=== PATIENT | male | born 1965 | race African-American/Black ===

== ENCOUNTER 2018-09-13 18:02 | Inpatient (IN) | payer MEDICARE, MEDICAID ==
[~2018-09-13] VITALS: Ht 175.3 cm; Wt 56.7 kg
[2018-09-14] VITALS (8 sets, daily range): BP systolic 130–146; BP diastolic 73–85
[2018-09-14 01:07] LABS: BASOPHILS % 0.9 % (0.0-2.0); EOSINOPHILS % 1.9 % (0.0-5.0); HEMATOCRIT. 24.3 % (42.0-52.0); HEMOGLOBIN. 7.9 g/dL (14.0-18.0); LYMPHOCYTES % 17.6 % (20.0-50.0); MEAN CORPUSCULAR HEMOGLOBIN 30.3 pg (28.0-32.0); MEAN CORPUSCULAR VOLUME 93.2 fL (80.0-94.0); MEAN PLATELET VOLUME 7.4 fl (7.4-10.4); MONOCYTES % 6.2 % (2.0-8.0); NEUTROPHILS % 73.4 % (40.0-76.0); PLATELET 251 x1000/uL (130-400); RED BLOOD CELL COUNT 2.61 mill/uL (4.7-6.1); RED CELL DISTRIBUTION WIDTH 20.8 % (11.6-14.6)
[2018-09-14 01:10] LABS: CHLORIDE 105 mEq/L (98-107)
[2018-09-14 01:12] LABS: INR 1.2; PROTHROMBIN TIME 11.6 sec (9.1-11.1)
[2018-09-14] MEDS ORDERED: ACETAMINOPHEN 325MG TABLET PO PRN (02:00)
[2018-09-14] MEDS: SODIUM CHLORIDE 0.9% INJ 3ML FLUSH IVF SCH ×2 (14:00→21:06)
[2018-09-14 19:33] LABS: BASOPHILS % 1.3 % (0.0-2.0); EOSINOPHILS % 3.5 % (0.0-5.0); HEMATOCRIT. 24.2 % (42.0-52.0); HEMOGLOBIN. 7.7 g/dL (14.0-18.0); LYMPHOCYTES % 13.7 % (20.0-50.0); MEAN CORPUSCULAR VOLUME 94.5 fL (80.0-94.0); MEAN PLATELET VOLUME 7.4 fl (7.4-10.4); MONOCYTES % 6.5 % (2.0-8.0); PLATELET 253 x1000/uL (130-400); RED BLOOD CELL COUNT 2.56 mill/uL (4.7-6.1); RED CELL DISTRIBUTION WIDTH 20.6 % (11.6-14.6)
[2018-09-14] MEDS ORDERED: SIMV40TA5 MT (19:45)
[2018-09-14] MEDS ORDERED: CARV6.2548 MT (19:57)
[2018-09-14] MEDS ORDERED: ALEN70TA46 MT (19:57)
[2018-09-14] MEDS ORDERED: FOLI1TAB87 MT (19:57)
[2018-09-14] MEDS ORDERED: RANI150T7 MT (19:57)
[2018-09-14] MEDS ORDERED: SERT-112 MT (19:57)
[2018-09-14] MEDS ORDERED: CYCL30DR EACHEYE (19:57)
[2018-09-14] MEDS ORDERED: TRAV2.5D EACHEYE (19:57)
[2018-09-14] MEDS ORDERED: OLAN10TA19 MT (19:57)
[2018-09-14] MEDS ORDERED: CALC0.5C10 MT (19:57)
[2018-09-14] MEDS ORDERED: LEVE500T19 MT (19:57)
[2018-09-14] MEDS ORDERED: POTA10CA42 MT (19:57)
[2018-09-14] MEDS ORDERED: MEGE40TA27 MT (19:57)
[2018-09-14] MEDS ORDERED: ASPI-1159 MT (19:57)
[2018-09-14] MEDS ORDERED: CARB10DR EACHEYE (19:57)
[2018-09-14] MEDS ORDERED: FOLI-43 MT (19:57)
[2018-09-14 19:59] LABS: TOTAL IRON BINDING CAPACITY 214 ug/dL (250-450)
[2018-09-14 20:00] LABS: HAPTOGLOBIN 105 mg/dL (30-200)
[2018-09-14 20:08] LABS: FERRITIN 972 ng/mL (22-322); FOLIC ACID (FOLATE) SERUM >20 ng/mL ng/mL (>5.38)
[2018-09-14 20:20] LABS: VITAMIN B12 SERUM 616 pg/mL (211-911)
[2018-09-14] MEDS: EPOETIN ALFA 10000UNITS/ML VIAL SUBCUT SCH ×2 (21:05→21:16)
[2018-09-15] VITALS (14 sets, daily range): BP systolic 117–165; BP diastolic 71–99
[2018-09-15] MEDS: CLONIDINE 0.1MG TABLET PO PRN (00:31)
[2018-09-15 05:56] LABS: PHOSPHORUS 3.6 mg/dL (2.5-4.9)
[2018-09-15] MEDS: SODIUM CHLORIDE 0.9% INJ 3ML FLUSH IVF SCH ×3 (06:00→22:25)
[2018-09-15 11:20] LABS: EOSINOPHILS % 3.8 % (0.0-5.0); HEMOGLOBIN. 7.3 g/dL (14.0-18.0); MEAN CORPUSCULAR HEMOGLOBIN 30.4 pg (28.0-32.0); MEAN CORPUSCULAR VOLUME 95.6 fL (80.0-94.0); MEAN PLATELET VOLUME 7.8 fl (7.4-10.4); MONOCYTES % 6.8 % (2.0-8.0); NEUTROPHILS % 73.4 % (40.0-76.0); PLATELET 250 x1000/uL (130-400); RED BLOOD CELL COUNT 2.41 mill/uL (4.7-6.1); RED CELL DISTRIBUTION WIDTH 20.7 % (11.6-14.6)
[2018-09-15] MEDS ORDERED: VANCOMYCIN 1250MG in DEXTROSE 5% WATER 250ML IV SCH (16:00)
[2018-09-16] VITALS (39 sets, daily range): BP systolic 109–208; BP diastolic 48–118
[2018-09-16 05:27] LABS: BASOPHILS % 0.9 % (0.0-2.0); EOSINOPHILS % 3.3 % (0.0-5.0); HEMATOCRIT. 23.3 % (42.0-52.0); HEMOGLOBIN. 7.3 g/dL (14.0-18.0); LYMPHOCYTES % 18.8 % (20.0-50.0); MEAN CORPUSCULAR HEMOGLOBIN 29.9 pg (28.0-32.0); MEAN CORPUSCULAR VOLUME 94.8 fL (80.0-94.0); MEAN PLATELET VOLUME 7.7 fl (7.4-10.4); MONOCYTES % 7.9 % (2.0-8.0); NEUTROPHILS % 69.1 % (40.0-76.0); PLATELET 258 x1000/uL (130-400); RED BLOOD CELL COUNT 2.46 mill/uL (4.7-6.1)
[2018-09-16 05:48] LABS: PHOSPHORUS 3.9 mg/dL (2.5-4.9)
[2018-09-16] MEDS ORDERED: LIDOCAINE HCL 1% 20ML VIAL (Pyxis) INJ ONE ×2 (09:28→16:06)
[2018-09-16] MEDS: CLONIDINE 0.1MG TABLET PO PRN ×2 (13:47→23:44)
[2018-09-16] MEDS ORDERED: PAPAVERINE HCL 30 MG/ML 2ML IV ONE (16:05)
[2018-09-16] MEDS ORDERED: HEPARIN 5000 UNITS/ML VIAL ONE (16:05)
[2018-09-16] MEDS ORDERED: BACITRACIN 15GM TUBE TOP ONE (16:06)
[2018-09-16] MEDS ORDERED: HEPARIN SODIUM 1,000 UNIT/1ML VIAL IV ONE (16:06)
[2018-09-16] MEDS ORDERED: BACITRACIN 50,000 UNITS/VIAL ONE (16:07)
[2018-09-16] MEDS ORDERED: NORMAL SALINE 0.9% 10 ML SYR ONE (16:07)
[2018-09-16] MEDS ORDERED: BUPIVACAINE HCL/PF 0.5% (5MG/ML) 10ML ONE (16:07)
[2018-09-16] MEDS ORDERED: GELATIN SPONGE,ABSORBABLE 12-7MM SPONGE ONE (16:26)
[2018-09-16] MEDS ORDERED: THROMBIN (BOVINE) 5000 UNITS/VIAL TOP ONE (16:27)
[2018-09-16] MEDS ORDERED: FENTANYL CITRATE/PF 50MCG/ML 2ML VIAL ONE ×2 (17:38→18:45)
[2018-09-16] MEDS ORDERED: NEOSTIGMINE METHYLSULFATE 1MG/ML 10 ML VIAL ONE (17:38)
[2018-09-16] MEDS ORDERED: ROCURONIUM BROMIDE 10MG/ML VIAL 5ML IV ONE (17:38)
[2018-09-16] MEDS ORDERED: PROPOFOL 200MG/20ML VIAL IV ONE (17:39)
[2018-09-16] MEDS ORDERED: GLYCOPYRROLATE 0.2 MG/ML 2ML VIAL ONE (17:39)
[2018-09-16] MEDS ORDERED: METOCLOPRAMIDE HCL 10MG/2ML VIAL ONE (17:39)
[2018-09-16] MEDS ORDERED: SODIUM CHLORIDE 0.9% 10ML VIAL ONE (17:39)
[2018-09-16] MEDS ORDERED: CEFAZOLIN SODIUM 1000MG/VIAL ONE (17:39)
[2018-09-16] MEDS ORDERED: SUCCINYLCHOLINE CHLORIDE 200MG/10ML IV ONE (17:39)
[2018-09-16] MEDS ORDERED: ONDANSETRON HCL 4MG/2ML INJ ONE (17:39)
[2018-09-16] MEDS ORDERED: MIDAZOLAM HCL 2 MG/2 ML VIAL ONE (17:39)
[2018-09-16] MEDS ORDERED: HYDROMORPHONE HCL/PF 2MG/ML CPJ IV PRN (19:30)
[2018-09-16] MEDS ORDERED: HYDROCODONE/ACETAMINOPHEN 5/325MG TABLET PO PRN (19:30)
[2018-09-16] MEDS: HYDROMORPHONE HCL/PF 2MG/ML CPJ IV PRN ×4 (20:08→20:44)
[2018-09-16] MEDS ORDERED: VANCOMYCIN 1 G PREMIX 200 ML IV NR (21:00)
[2018-09-16] MEDS: HYDROCODONE/ACETAMINOPHEN 10/325MG TABLET PO PRN (23:43)
[2018-09-17] VITALS (51 sets, daily range): BP systolic 120–218; BP diastolic 45–135
[2018-09-17] MEDS: HYDROCODONE/ACETAMINOPHEN 10/325MG TABLET PO PRN (06:16)
[2018-09-17 06:37] LABS: EOSINOPHILS % 2.5 % (0.0-5.0); HEMATOCRIT. 29.6 % (42.0-52.0); HEMOGLOBIN. 9.6 g/dL (14.0-18.0); LYMPHOCYTES % 10.2 % (20.0-50.0); MEAN CORPUSCULAR HEMOGLOBIN 30.3 pg (28.0-32.0); MEAN CORPUSCULAR VOLUME 93.8 fL (80.0-94.0); MEAN PLATELET VOLUME 7.8 fl (7.4-10.4); NEUTROPHILS % 77.3 % (40.0-76.0); PLATELET 208 x1000/uL (130-400); RED BLOOD CELL COUNT 3.16 mill/uL (4.7-6.1)
[2018-09-17 07:06] LABS: PHOSPHORUS 3.6 mg/dL (2.5-4.9)
[2018-09-17] MEDS: CLONIDINE 0.1MG TABLET PO PRN (09:20)
[2018-09-17] MEDS: LOSARTAN POTASSIUM 50 MG TABLET PO SCH (14:15)
[2018-09-17] MEDS: CEFAZOLIN 1000MG PREMIX 50 ML IV SCH (15:09)
[2018-09-17] MEDS: EPOETIN ALFA 10000UNITS/ML VIAL SUBCUT SCH (21:00)
[2018-09-18] VITALS (7 sets, daily range): BP systolic 107–165; BP diastolic 80–113
[2018-09-18] MEDS: CLONIDINE 0.1MG TABLET PO PRN ×2 (04:53→18:38)
[2018-09-18 07:08] LABS: BASOPHILS % 1.1 % (0.0-2.0); EOSINOPHILS % 3.5 % (0.0-5.0); HEMOGLOBIN. 8.1 g/dL (14.0-18.0); LYMPHOCYTES % 10.6 % (20.0-50.0); MEAN CORPUSCULAR HEMOGLOBIN 30.1 pg (28.0-32.0); MEAN PLATELET VOLUME 7.6 fl (7.4-10.4); MONOCYTES % 7.6 % (2.0-8.0); NEUTROPHILS % 77.2 % (40.0-76.0); PLATELET 190 x1000/uL (130-400); RED BLOOD CELL COUNT 2.69 mill/uL (4.7-6.1); RED CELL DISTRIBUTION WIDTH 19.2 % (11.6-14.6)
[2018-09-18 07:46] LABS: PHOSPHORUS 4.2 mg/dL (2.5-4.9)
[2018-09-18] MEDS ORDERED: HEPARIN SODIUM 1,000 UNIT/1ML VIAL IV ONE (09:30)
[2018-09-18] MEDS: LOSARTAN POTASSIUM 50 MG TABLET PO SCH (11:07)
[2018-09-18] MEDS: CEFAZOLIN 1000MG PREMIX 50 ML IV SCH (11:08)
[2018-09-18] MEDS ORDERED: DEXTROSE 50% WATER 50ML SYRINGE IV PRN (11:30)
[2018-09-18] MEDS: INSULIN LISPRO 100 UNITS/ML SUBCUT SCH ×3 (12:28→21:34)
[2018-09-18] MEDS: BLOOD SUGAR DIAGNOSTIC STRIP TEST SCH ×3 (12:30→21:35)
[2018-09-19] VITALS (13 sets, daily range): BP systolic 135–182; BP diastolic 78–100
[2018-09-19] MEDS: CLONIDINE 0.1MG TABLET PO PRN ×2 (00:17→22:34)
[2018-09-19] MEDS: BLOOD SUGAR DIAGNOSTIC STRIP TEST SCH ×4 (07:20→21:21)
[2018-09-19] MEDS: INSULIN LISPRO 100 UNITS/ML SUBCUT SCH ×4 (07:50→21:00)
[2018-09-19] MEDS ORDERED: LIDOCAINE HCL/EPINEPHRINE 1%-EPI 1:100,000 20 ML VIAL ONE (08:07)
[2018-09-19] MEDS ORDERED: HEPARIN 1000 UNITS/ML 10ML ONE (08:25)
[2018-09-19] MEDS ORDERED: SODIUM BICARBONATE 4% (2.4MEQ) 5ML VIAL IV ONE (08:25)
[2018-09-19] MEDS ORDERED: LIDOCAINE HCL 1% 20ML VIAL (Pyxis) INJ ONE (08:25)
[2018-09-19] MEDS: CEFAZOLIN 1000MG PREMIX 50 ML IV SCH (09:00)
[2018-09-19] MEDS: LOSARTAN POTASSIUM 50 MG TABLET PO SCH (09:00)
[2018-09-19 10:08] LABS: BASOPHILS % 0.9 % (0.0-2.0); EOSINOPHILS % 2.6 % (0.0-5.0); HEMATOCRIT. 32.3 % (42.0-52.0); HEMOGLOBIN. 10.1 g/dL (14.0-18.0); LYMPHOCYTES % 21.9 % (20.0-50.0); MEAN CORPUSCULAR HEMOGLOBIN 29.5 pg (28.0-32.0); MEAN CORPUSCULAR VOLUME 94.3 fL (80.0-94.0); MEAN PLATELET VOLUME 7.8 fl (7.4-10.4); MONOCYTES % 6.7 % (2.0-8.0); NEUTROPHILS % 67.9 % (40.0-76.0); PLATELET 226 x1000/uL (130-400); RED BLOOD CELL COUNT 3.42 mill/uL (4.7-6.1); RED CELL DISTRIBUTION WIDTH 18.8 % (11.6-14.6)
[2018-09-19 10:24] LABS: PHOSPHORUS 4.4 mg/dL (2.5-4.9)
[2018-09-19] MEDS: AMLODIPINE 5MG TABLET PO SCH (14:38)
[2018-09-19] MEDS: SODIUM CHLORIDE 0.9% INJ 3ML FLUSH IVF SCH ×2 (15:25→21:51)
[2018-09-20] VITALS: BP 127/72
[2018-09-20 04:00] VITALS: BP 156/86
[2018-09-20] MEDS: SODIUM CHLORIDE 0.9% INJ 3ML FLUSH IVF SCH ×2 (05:54→13:04)
[2018-09-20] MEDS: BLOOD SUGAR DIAGNOSTIC STRIP TEST SCH ×3 (06:29→18:02)
[2018-09-20] MEDS: INSULIN LISPRO 100 UNITS/ML SUBCUT SCH ×3 (07:50→17:50)
[2018-09-20 08:00] VITALS: BP 141/77
[2018-09-20] MEDS: LOSARTAN POTASSIUM 50 MG TABLET PO SCH (09:06)
[2018-09-20] MEDS: AMLODIPINE 5MG TABLET PO SCH (09:15)
[2018-09-20] MEDS: CEFAZOLIN 1000MG PREMIX 50 ML IV SCH (09:15)
[2018-09-20 09:58] LABS: BASOPHILS % 0.9 % (0.0-2.0); HEMATOCRIT. 27.9 % (42.0-52.0); LYMPHOCYTES % 13.3 % (20.0-50.0); MEAN CORPUSCULAR HEMOGLOBIN 29.5 pg (28.0-32.0); MEAN CORPUSCULAR VOLUME 91.5 fL (80.0-94.0); MEAN PLATELET VOLUME 7.5 fl (7.4-10.4); MONOCYTES % 8.4 % (2.0-8.0); NEUTROPHILS % 73.4 % (40.0-76.0); PLATELET 268 x1000/uL (130-400); RED BLOOD CELL COUNT 3.05 mill/uL (4.7-6.1); RED CELL DISTRIBUTION WIDTH 18.1 % (11.6-14.6)
[2018-09-20 10:30] LABS: PHOSPHORUS 3.5 mg/dL (2.5-4.9)
[2018-09-20 12:00] VITALS: BP 134/61
[2018-09-20 16:00] VITALS: BP 138/62
[2018-09-20 18:05] VITALS: BP 132/62
== END 2018-09-20 18:35 | disposition home health service (06) | DRG 579 ==
LOC: ER 18:02 → 6EST 09-14 00:55 → ENRESERV 09-14 06:46 → CVICU 09-15 16:03 → 6EST 09-17 18:45
PROVIDERS: ADMIT Internal Medicine; ATTEND Internal Medicine
PROC: 5A1D70Z Performance of Urinary Filtration, Intermittent, Less than 6 Hours Per Day (ICD-10-PCS; 2018-09-14)
PROC: 5A1D70Z Performance of Urinary Filtration, Intermittent, Less than 6 Hours Per Day (ICD-10-PCS; 2018-09-15)
PROC: 03PY0JZ Removal of Synthetic Substitute from Upper Artery, Open Approach (ICD-10-PCS; principal; 2018-09-16)
PROC: 03773ZZ Dilation of Right Brachial Artery, Percutaneous Approach (ICD-10-PCS; 2018-09-16)
PROC: 02HV33Z Insertion of Infusion Device into Superior Vena Cava, Percutaneous Approach (ICD-10-PCS; 2018-09-16)
PROC: B548ZZA Ultrasonography of Superior Vena Cava, Guidance (ICD-10-PCS; 2018-09-16)
PROC: 30233N1 Transfusion of Nonautologous Red Blood Cells into Peripheral Vein, Percutaneous Approach (ICD-10-PCS; 2018-09-16)
PROC: 05PY0JZ Removal of Synthetic Substitute from Upper Vein, Open Approach (ICD-10-PCS; 2018-09-16)
PROC: 5A1D70Z Performance of Urinary Filtration, Intermittent, Less than 6 Hours Per Day (ICD-10-PCS; 2018-09-17)
PROC: 05PYX3Z Removal of Infusion Device from Upper Vein, External Approach (ICD-10-PCS; 2018-09-19)
PROC: 06H033Z Insertion of Infusion Device into Inferior Vena Cava, Percutaneous Approach (ICD-10-PCS; 2018-09-19)
PROC: 0JH63XZ Insertion of Tunneled Vascular Access Device into Chest Subcutaneous Tissue and Fascia, Percutaneous Approach (ICD-10-PCS; 2018-09-19)
PROC: B5191ZA Fluoroscopy of Inferior Vena Cava using Low Osmolar Contrast, Guidance (ICD-10-PCS; 2018-09-19)
PROC: 5A1D70Z Performance of Urinary Filtration, Intermittent, Less than 6 Hours Per Day (ICD-10-PCS; 2018-09-19)
DX: S70.02XA Contusion of left hip, initial encounter (principal); N18.6 End stage renal disease; T85.79XA Infection and inflammatory reaction due to other internal prosthetic devices, implants and grafts, initial encounter; I12.0 Hypertensive chronic kidney disease with stage 5 chronic kidney disease or end stage renal disease; D64.9 Anemia, unspecified; E11.22 Type 2 diabetes mellitus with diabetic chronic kidney disease; Y83.2 Surgical operation with anastomosis, bypass or graft as the cause of abnormal reaction of the patient, or of later complication, without mention of misadventure at the time of the procedure; Z96.643 Presence of artificial hip joint, bilateral; E88.09 Other disorders of plasma-protein metabolism, not elsewhere classified; W01.0XXA Fall on same level from slipping, tripping and stumbling without subsequent striking against object, initial encounter; H91.90 Unspecified hearing loss, unspecified ear; X58.XXXA Exposure to other specified factors, initial encounter; Y93.89 Activity, other specified; Y92.009 Unspecified place in unspecified non-institutional (private) residence as the place of occurrence of the external cause; Z99.2 Dependence on renal dialysis; Y99.8 Other external cause status; S72.92XD Unspecified fracture of left femur, subsequent encounter for closed fracture with routine healing
CPT/HCPCS: 36415; 36558; 36569; 36589; 71045; 73522; 73562; 73700; 76937; 77001; 80048; 80202; 82607; 82728; 82746; 82962; 83010; 83540; 83550; 83735; 84100; 85044; 86850; 86900; 86920; 87070; 87075; 87077; 88304; 93005; 93970; 96372; 97162; 99285; A6261; C1750; C1752; C1769; C1887; J0330; J0690; J0885; J1170; J1644; J1815; J2250; J2405; J2440; J2704; J2710; J2765; J3010; J3370; J3490; J7050; J7060; P9016